=== PATIENT | male | born 1960 | race Caucasian/White ===

== ENCOUNTER 2021-11-08 11:54 | Emergency (ER) | payer OTHER ==
[~2021-11-08 11:54] MED LIST: CELEBREX200 MG PO; CYCLOBENZAPRINE5 MG PO; PREDNISONE20 MG PO
[2021-11-08 13:58] LABS: HEMOGLOBIN 13.4 gm/dl (14.0-17.5); RED BLOOD COUNT 3.98 M/UL (4.20-5.50); WHITE BLOOD COUNT 6.1 K/UL (4.5-11.0)
[2021-11-08 14:27] LABS: BUN/CREATININE RATIO 12 (0-10)
[2021-11-08] MEDS ORDERED: VITAMIN B-121000 MC3 PO (16:16)
[2021-11-08] MEDS ORDERED: B-1100 MG PO (16:16)
== END 2021-11-08 17:15 | disposition home or self-care (01) ==
LOC: ER1 11:54
PROVIDERS: Emergency Medicine
DX: R20.2 Paresthesia of skin (principal); F10.10 Alcohol abuse, uncomplicated; R13.10 Dysphagia, unspecified; Z20.822 Contact with and (suspected) exposure to COVID-19
CPT/HCPCS: 70450; 80053; 82550; 82553; 82607; 82962; 83735; 83874; 84439; 84443; 84484; 85025; 93005; 96374; 99285; G0480; J3411; U0002

== ENCOUNTER 2022-05-06 05:05 | Emergency (ER) | payer OTHER ==
[~2022-05-06 05:05] MED LIST changes: +B-1100 MG PO; +VITAMIN B-121000 MC3 PO
[2022-05-06 05:31] LABS: HEMOGLOBIN 16.4 gm/dl (14.0-17.5); RED BLOOD COUNT 5.01 M/UL (4.20-5.50); WHITE BLOOD COUNT 9.2 K/UL (4.5-11.0)
[2022-05-06 05:56] LABS: BUN/CREATININE RATIO 11 (0-10)
== END 2022-05-06 18:00 ==
LOC: ER1 05:05
PROVIDERS: Emergency Medicine; Family Medicine
DX: S22.42XA Multiple fractures of ribs, left side, initial encounter for closed fracture (principal); S22.079A Unspecified fracture of T9-T10 vertebra, initial encounter for closed fracture; S22.089A Unspecified fracture of T11-T12 vertebra, initial encounter for closed fracture; I10 Essential (primary) hypertension; W19.XXXA Unspecified fall, initial encounter
CPT/HCPCS: 0240U; 70450; 71250; 72125; 72128; 72131; 80053; 80307; 81001; 82550; 82553; 83605; 83690; 83735; 84439; 84443; 84484; 85025; 93005; 96372; 96374; 96375; 96376; 99285; G0480; J0696; J2270; J7030; Q9967